=== PATIENT | female | born 1990 | race Caucasian/White ===

== ENCOUNTER → 2017-01-21 | Outpatient (CLI) | payer BC ==
[~2017-01-21] MED LIST: D3-5050000 IU; FOLIC ACID 11 MG/TA1; FOLIC ACID800 MCG PO; GLUCOPHAGE1000 MG; IBU800 M1 PO; IRON325 M2 PO; LINZESS290CAP; MIRALAX PA17 GM/Dose PO; NEXIUM 20MG20 MG PO; NORCO 325 MG-51 TAB PO; PROFERRIN ES12 MG; VITAMIN B-1000 MCG/T; VITAMIN B-1000 MCG/T PO; VITAMIN D 1001000 IU PO; YAZ 28 3 MG-0.01 TAB PO
== END ==
LOC: COL.RAD 12:45
DX: E04.1 Nontoxic single thyroid nodule (principal)

== ENCOUNTER 2017-01-29 17:16 | Observation (INO) | payer BC ==
[2017-01-29 18:00] VITALS: BP 124/79; PULSE 104; TEMP 98.5
[2017-01-29] MEDS ORDERED: NORCO 325 MG-51 TAB PO (18:01)
[2017-01-29] MEDS ORDERED: LINZESS290CAP (18:02)
[2017-01-29] MEDS ORDERED: PROFERRIN ES12 MG (18:03)
[2017-01-29] MEDS ORDERED: FOLIC ACID 11 MG/TA1 (18:04)
[2017-01-29] MEDS ORDERED: D3-5050000 IU (18:05)
[2017-01-29] MEDS ORDERED: VITAMIN B-1000 MCG/T (18:05)
[2017-01-29] MEDS ORDERED: MIRALAX PA17 GM/Dose PO (18:06)
[2017-01-29] MEDS ORDERED: GLUCOPHAGE1000 MG (18:06)
[2017-01-29] MEDS ORDERED: IBU800 M1 PO (18:07)
[2017-01-29] MEDS ORDERED: YAZ 28 3 MG-0.01 TAB PO (18:08)
[2017-01-29 18:41] LABS: HEMATOCRIT 37.6 % (37.0-47.0); HEMOGLOBIN 13.2 g/dl (12.5-16.0); MEAN CELL VOLUME 89 fl (80.0-100.0); MEAN CORPUSCULAR HEMOGLOBIN 31 pg (27.0-31.0); MEAN CORPUSCULAR HGB CONC 35 g/dl (33.0-37.0); MEAN PLATELET VOLUME 9.8 fl (7.4-10.4); PLATELET COUNT 176 K/mm3 (130-400); RED BLOOD COUNT 4.25 M/mm3 (4.10-5.30); WHITE BLOOD COUNT 10.6 K/mm3 (4.8-10.8)
[2017-01-29 18:51] LABS: ADJUSTED CALCIUM 9.1 mg/dL (8.4-10.2); ALBUMIN 4.1 gm/dL (3.5-5.0); BILIRUBIN,TOTAL 0.5 mg/dL (0.0-1.0); CALCIUM 9.2 mg/dL (8.4-10.2); CREATININE, serum 0.57 mg/dL (0.52-1.25); POTASSIUM 3.4 mmol/L (3.4-5.0)
[2017-01-29 21:31] VITALS: BP 120/73; PULSE 45; TEMP 99.2
[2017-01-30 01:15] VITALS: BP 117/64; PULSE 67; TEMP 98.7
[2017-01-30 05:41] VITALS: BP 100/56; PULSE 78; TEMP 98.3
[2017-01-30 12:14] VITALS: BP 113/79; PULSE 65; TEMP 99
[2017-02-02] MEDS ORDERED: VITAMIN D 1001000 IU PO (09:42)
[2017-02-02] MEDS ORDERED: VITAMIN B-1000 MCG/T PO (09:42)
[2017-02-02] MEDS ORDERED: FOLIC ACID800 MCG PO (09:43)
[2017-02-02] MEDS ORDERED: IRON325 M2 PO (09:44)
[2017-02-03] MEDS ORDERED: NEXIUM 20MG20 MG PO (10:07)
== END 2017-01-31 08:57 | disposition home or self-care (01) ==
LOC: SDCO 17:16 → SURG 17:18 → SDCO 01-30 19:11 → SURG 01-31 08:57
PROVIDERS: Surgery
DX: K80.10 Calculus of gallbladder with chronic cholecystitis without obstruction (principal); E28.2 Polycystic ovarian syndrome; Z79.84 Long term (current) use of oral hypoglycemic drugs
CPT/HCPCS: OP; G0378; J0694; J0696; J1100; J1170; J2270; J2405; J2704; J3010; J7120; Q9967

== ENCOUNTER → 2017-01-29 | Outpatient (CLI) | payer BC | LOC: COL.RAD 13:20 | DX: K80.00 Calculus of gallbladder with acute cholecystitis without obstruction (principal); K82.1 Hydrops of gallbladder; K59.00 Constipation, unspecified; R63.4 Abnormal weight loss | CPT/HCPCS: Q9967 ==

== ENCOUNTER → 2017-02-03 | Outpatient (CLI) | payer BC ==
[~2017-02-03] VITALS: Ht 165.1 cm; Wt 59.1 kg
[2017-02-03 10:09] VITALS: BP 105/56; PULSE 46
== END ==
LOC: COL.RAD 09:45
DX: E04.1 Nontoxic single thyroid nodule (principal)

== ENCOUNTER 2018-03-25 13:47 | Day surgery (SDC) | payer BC ==
[~2018-03-25] VITALS: Ht 165.1 cm; Wt 57.8 kg
[~2018-03-25 13:47] MED LIST changes: -LINZESS290CAP; +LINZESS290CAP PO; -VITAMIN B-1000 MCG/T PO; +VITAMIN B12 681 TAB PO
[2018-03-25] MEDS ORDERED: CELEXA40 MG PO (14:07)
[2018-03-25] MEDS ORDERED: APRI 0.15 MG-0.1 TAB PO (14:08)
[2018-03-25] MEDS ORDERED: AMBIEN 10MG10 MG PO (14:09)
[2018-03-25] MEDS ORDERED: CENTRUM SILVER1 TA2 PO (14:10)
[2018-03-25] MEDS ORDERED: BIOTIN10000 MC1 PO (14:12)
[2018-03-25 14:24] VITALS: BP 92/65; PULSE 69; TEMP 98.1
[2018-03-25] MEDS ORDERED: VITAMIN B COMPL1 SGL PO (14:41)
[2018-03-25 16:35] VITALS: BP 118/84; PULSE 83; TEMP 98
[2018-03-25 16:50] VITALS: BP 100/68; PULSE 67
[2018-03-25 17:05] VITALS: BP 97/64; PULSE 53
[2018-03-25 17:20] VITALS: BP 98/65; PULSE 57
[2018-03-25 18:39] VITALS: BP 102/63; PULSE 51
== END 2018-03-25 17:40 | disposition home or self-care (01) ==
LOC: SDCO 13:47
DX: K21.9 Gastro-esophageal reflux disease without esophagitis (principal); K29.30 Chronic superficial gastritis without bleeding; K59.00 Constipation, unspecified; E06.3 Autoimmune thyroiditis; K58.0 Irritable bowel syndrome with diarrhea; E28.2 Polycystic ovarian syndrome; Z90.49 Acquired absence of other specified parts of digestive tract; Z83.79 Family history of other diseases of the digestive system
CPT/HCPCS: J2250; J3010